=== PATIENT | female | born 1995 | race African-American/Black ===

== ENCOUNTER 2022-12-05 15:11 | Emergency (ER) | payer SELFPAY ==
[~2022-12-05] VITALS: Ht 162.6 cm; Wt 64.0 kg
[2022-12-05 15:17] VITALS: BP 99/66; PULSE 89; RESP 18; TEMP 97.9; O2SAT 97
[2022-12-05] MEDS ORDERED: SODIUM CHLORIDE 0.9% 1,000 ML IV ONE (16:30)
[2022-12-05 16:40] LABS: BASOPHILS % 0.3 % (0.0-2.0); DIFFERENTIAL COMMENT 0; EOSINOPHILS % 0.3 % (0.0-5.0); HEMATOCRIT. 37.7 % (36.0-48.0); HEMOGLOBIN. 13.2 g/dL (12.0-16.0); LYMPHOCYTES % 17.1 % (20.0-50.0); MEAN CORPUSCULAR HEMOGLOBIN 35.3 pg (28.0-32.0); MEAN CORPUSCULAR VOLUME 100.8 fL (81.0-99.0); MEAN PLATELET VOLUME 7.6 fl (7.4-10.4); MONOCYTES % 6.9 % (2.0-8.0); NEUTROPHILS % 75.4 % (40.0-76.0); PLATELET 248 x1000/uL (130-400); RED BLOOD CELL COUNT 3.74 mill/uL (4.2-5.4); WHITE BLOOD COUNT 5.8 x1000/uL (4.5-11.0)
[2022-12-05 16:52] LABS: CHLORIDE 99 mEq/L (98-107); INDEX HEMOLYSI 1 (1-3); INDEX ICTERIC 1 (1-4); INDEX LIPEMIC 1 (1-3); POTASSIUM 3.3 mEq/L (3.5-5.1); SODIUM 133 mEq/L (136-145)
[2022-12-05 17:00] LABS: HCG SCREEN NEGATIVE
[2022-12-05 17:01] LABS: ALANINE AMINOTRANSFERASE 17 IU/L (13-61); ALBUMIN 3.4 g/dL (3.4-5.0); ASPARTATE AMINOTRANSFERASE 15 IU/L (15-37); CALCIUM 8.9 mg/dL (8.5-10.1); CARBON DIOXIDE 26 mEq/L (21-32); CREATININE 0.6 mg/dL (0.6-1.3); ETHANOL BLOOD < 10 mg/dL (-10); GLUCOSE 112 mg/dL (70-105); PROTEIN TOTAL 7.5 g/dL (6.0-8.3); UREA NITROGEN BLOOD 10 mg/dL (7-21)
[2022-12-05 17:16] LABS: TROPONIN I HIGH SENSITIVITY < 4 ng/L (<54)
[2022-12-05] MEDS ORDERED: POTASSIUM CHLORIDE 20MEQ TABLET SR PO ONE (18:00)
[2022-12-05 19:15] LABS: TROPONIN I HIGH SENSITIVITY < 4 ng/L (<54)
== END 2022-12-05 22:54 | disposition home or self-care (01) ==
LOC: ER 15:11
DX: G40.909 Epilepsy, unspecified, not intractable, without status epilepticus (principal); F32.A Depression, unspecified; F43.10 Post-traumatic stress disorder, unspecified; Z88.0 Allergy status to penicillin
CPT/HCPCS: 80053; 80320; 84703; 85025; 84484; 36415; 71045; 70450; 93005; 96360; 96361; 99285; J7030; G0480